=== PATIENT | female | born 1985 | race Two or more races ===

== ENCOUNTER 2016-11-30 14:20 | Emergency (ER) | payer OTHER ==
[~2016-11-30] VITALS: Ht 160 cm; Wt 68.2 kg
[2016-11-30 14:20] VITALS: BP 112/71
[2016-11-30] MEDS ORDERED: TOPA50TA8 PO (14:32)
[2016-11-30] MEDS ORDERED: IBUP80TA PO (15:33)
[2016-11-30] MEDS ORDERED: IBUPROFEN 800 MG TAB PO ONE (15:45)
== END 2016-11-30 15:48 | disposition home or self-care (01) ==
LOC: M ED 14:20
DX: S23.3XXA Sprain of ligaments of thoracic spine, initial encounter (principal); V43.52XA Car driver injured in collision with other type car in traffic accident, initial encounter; Y92.410 Unspecified street and highway as the place of occurrence of the external cause; Y99.9 Unspecified external cause status; Y93.9 Activity, unspecified

== ENCOUNTER 2017-02-02 20:59 | Emergency (ER) | payer OTHER, SELFPAY ==
[~2017-02-02] VITALS: Ht 160 cm; Wt 79.5 kg
[~2017-02-02 20:59] MED LIST: IBUP80TA PO; TOPA50TA8 PO
[2017-02-02] MEDS ORDERED: MORPHINE 2 MG/ML 1ML SYRINGE IV ONE (23:00)
[2017-02-02] MEDS ORDERED: NS 1,000 ML IV ONE (23:00)
[2017-02-02 23:20] LABS: BASO # 0.1 10^3/uL (0.0-0.2); BASO % 0.7 % (0.0-1.0); EOS # 0.2 10^3/uL (0.0-0.50); EOS % 1.6 % (0.0-3.0); IMMATURE GRANULOCYTE % 0.2 % (0-0); LYMPH # 2.9 10^3/uL (1.5-4.5); LYMPH % 31.4 % (24.0-44.0); MEAN CORPUSCULAR HEMOGLOBIN 27.8 pg (27.0-33.0); MEAN CORPUSCULAR HGB CONC 32.5 g/dl (32.0-36.5); MEAN CORPUSCULAR VOLUME 85.7 fl (80.0-96.0); MONO # 0.6 10^3/uL (0.0-0.8); MONO % 6.3 % (0.0-5.0); NEUTROPHILS # 5.5 10^3/uL (1.8-7.7); NEUTROPHILS % 59.8 % (36.0-66.0); PLATELET COUNT, AUTOMATED 274 10^3/uL (150-450); RED CELL DISTRIBUTION WIDTH 12.9 % (11.5-14.5); WHITE BLOOD COUNT 9.2 10^3/uL (4.0-10.0)
[2017-02-02] MEDS ORDERED: ISOVUE-370 76% 100ML VIAL (Q9967) As Ordered ONE (23:27)
[2017-02-02 23:44] LABS: CONTROL LINE HCG INT CTR LINE PRESENT
[2017-02-02 23:49] LABS: ALBUMIN 4.2 GM/DL (3.2-5.2); ALBUMIN/GLOBULIN RATIO 1.08 (1.00-1.93); ALKALINE PHOSPHATASE 126 U/L (45-117); ALT/SGPT 43 U/L (12-78); ANION GAP 6 MEQ/L (8-16); AST/SGOT 22 U/L (15-37); BILIRUBIN,TOTAL 0.2 MG/DL (0.2-1.0); BLOOD UREA NITROGEN 9 MG/DL (7-18); CALCIUM LEVEL 9.6 MG/DL (8.5-10.1); CARBON DIOXIDE LEVEL 28 MEQ/L (21-32); CHLORIDE LEVEL 104 MEQ/L (98-107); CREATININE FOR GFR 0.62 MG/DL (0.55-1.02); GLOMERULAR FILTRATION RATE > 60.0 (>60); GLUCOSE, FASTING 91 MG/DL (70-105); POTASSIUM SERUM 3.7 MEQ/L (3.5-5.1); SODIUM LEVEL 138 MEQ/L (136-145); TOTAL PROTEIN 8.1 GM/DL (6.4-8.2)
--- NOTE | 2017-02-03 01:20 | REPUSA ---
CLINICAL HISTORY: Abdominal pain. TECHNIQUE: Multiple axial, sagittal and coronal CT images were obtained through the abdomen and pelvi s after administration of intravenous contrast material. COMMENTS: 1.4 cm cyst in segment IVb of the liver. The remaining liver is of uniform attenuation without mass o r defect. There is no intra or extrahepatic biliary ductal dilatation. The spleen is normal. The gall bladder is surgically absent. The pancreas is of normal contour and attenuation characteristics. Ther e is no evidence of adrenal mass. Both kidneys demonstrate prompt and equal nephrograms. The kidneys are normal in size, shape and conf iguration. There is no evidence of renal or ureteral mass. No renal or ureteral calculi are identifie d. There is no hydroureter or hydronephrosis. No evidence for appendicitis. There is diffuse proximal bowel wall thickening. Fluid filled small jamaal wels. No evidence for small or large bowel obstruction. There is no evidence of abdominal ascites or lymphadenopathy. There is no evidence of intrinsic or extrinsic bladder mass. There is no pelvic ascites or lymphadeno mark. Bilateral tubal clips are noted. Images of the lung bases show no evidence of pleural or parenchymal mass. There are no pleural effusi ons. The bony structures are free of lytic or blastic lesions. Fat containing umbilical hernia without incarceration. IMPRESSION: Enteritis. Normal appendix. Thank you for your kind referral of this patient.
[2017-02-03] MEDS ORDERED: ZOFR4TAB3 PO (02:09)
[2017-02-03 02:16] VITALS: BP 130/80
== END 2017-02-03 02:18 | disposition home or self-care (01) ==
LOC: M ED 20:59
DX: A08.4 Viral intestinal infection, unspecified (principal)
CPT/HCPCS: 74177; 80053; 84703; 85025; 96374; 99283; G0463; Q9967

== ENCOUNTER → 2017-02-14 | Outpatient (REF) | payer OTHER ==
[~2017-02-14] MED LIST changes: +ZOFR4TAB3 PO
== END ==
LOC: M SFHCLERA 15:09
PROVIDERS: ATTEND Family Medicine
DX: E66.9 Obesity, unspecified (principal)

== ENCOUNTER → 2017-10-02 | Outpatient (REF) | payer OTHER | LOC: M SFHCLERA 18:40 | DX: J02.9 Acute pharyngitis, unspecified (principal) ==